=== PATIENT | male | born 1960 | race African-American/Black ===

== ENCOUNTER 2019-03-07 11:04 | Inpatient (IN) | payer BC, OTHER ==
[~2019-03-07] VITALS: Ht 190.5 cm; Wt 106.5 kg
[2019-03-07 11:57] VITALS: BP 126/91
[2019-03-07] MEDS ORDERED: REMERON 30 MG T30 MG PO (13:36)
[2019-03-07] MEDS ORDERED: TAMSULOSIN HCL0.4 MG PO (13:36)
[2019-03-07] MEDS ORDERED: GABAPENTIN 100100 MG PO (13:37)
[2019-03-07] MEDS ORDERED: FINASTERIDE5 MG PO (13:37)
[2019-03-07] MEDS ORDERED: MYRBETRIQ25 MG PO (13:38)
[2019-03-07] MEDS ORDERED: ELIQUIS5 MG PO (13:39)
[2019-03-07] MEDS ORDERED: TOPROL XL25 MG (13:39)
[2019-03-07 17:02] VITALS: BP 137/99
--- NOTE | 2019-03-07 17:08 | EKG ---
[address] [address] ELECTROCARDIOGRAM REPORT Name: CARINA HAYWARDALYSSIA Almanzar Room #: 216-P ADM IN M.R.#: [id number] Admission: 03/07/19 Attend Phys: Jeison Sevilla Discharge: Date of : 56 Report #: [id number] THIS REPORT FOR: //name// [facility] Test Date: 2019-03-07 Test Time: 13:22:31 Pat Name: FRANCESCO HAYWARD Department: Room: 216 P Gender: M Ict Project Manager: Nella SOTO : 1960 Requested By: Blanche Duff Order Number: [id number] MD: Liam Coffman Measurements Intervals [place] Rate: 112 P: [place]: QRS: -22 QRSD: 76 T: 117 QT: 348 QTc: 475 Interpretive Statements Atrial fibrillation Ventricular premature complex Borderline left axis deviation Anterior infarct, old No previous ECG available for comparison Electronically Signed On 03-07-2019 17:07:55 MARKETING RESEARCH COORDINATOR by Liam Coffman [email or web address] <ELECTRONICALLY SIGNED> By: Liam Coffman MD, [facility] 03/07/19 1707 1321 21 Liam Coffman MD, FACC /EPI
[2019-03-07 20:23] VITALS: BP 108/85
[2019-03-08] VITALS (13 sets, daily range): BP systolic 126–154; BP diastolic 71–112
[2019-03-08 09:08] LABS: CALCIUM 9.5 mg/dL (8.5-10.1); CREATININE 1.3 mg/dL (0.7-1.3); HEMATOCRIT 49.9 % (42.0-52.0); HEMOGLOBIN 16.1 gm/dL (14.0-18.0); MCH 23.1 pg (26.0-34.0); MCHC 32.3 g/dL (28.0-37.0); MCV 71.6 fL (80.0-100.0); POTASSIUM 3.7 mmol/L (3.5-5.1); RBC 6.96 mil/uL (4.50-6.00)
--- NOTE | 2019-03-08 18:49 | NUR ---
PT. ARRIVED AT FLOOR AROUND 1600; PT. ASKING TO TAKE MASK OFF; ALERT TO PERSON; STRONG MALODORUS ODOR COMMING FROM BACK WOUNDS; ON BYPAP; ADMISSION PERFORMED; AROUND 1700 DR. GILL AT THE BED SIDE; PER ORDER TRANSFER PT. TO ICU; ORDERS PUT ON COMPUTER; [facility] NURSING DIRECTOR NOTIFIED; REPORT GIVE IT TO K; AROUND 1745 PT. TRANSFER TO [facility]; ADMISSION PERFORMED;
--- NOTE | 2019-03-08 19:09 | NUR ---
RECEIVED PT'S CARE AROUND 0716; PT. ON BED; AOX4; DURING ASSESSMENT NO C/O PAIN; HR ON THE 110s; C/O SOB EPISODES FROM TIME TO TIME; 02 ALLISON ABOVE 90%; AM MEDICATIONS GIVEN WITH SIP OF WATER; EDUCATED ABOUT TO REMAIN NPO FOR PROCEDURE; ST. DAILY; TOOK FOR PROCEDURE AROUND 1320; CAME BACK AROUND 1430; A0X4; BED REST FOR 3H; R. GROIN AREA D/C/I; NO HEMATOMA; ASSESSMENT CHARGED; FOLLOWING POC; PASSED ON REPORT;
[2019-03-09] VITALS (7 sets, daily range): BP systolic 123–153; BP diastolic 98–108
--- NOTE | 2019-03-09 04:03 | NUR ---
SHIFT NOTE: PATIENT ALERT AND ORIENTED AND ABLE TO COMMUNICATE NEEDS. DENIES PAIN OR DISCOMFORT. UP AND ANDREW TO THE BATHROOM INDEPENDENTLY. VITAL SIGN AND OTHER SHIFT ASSESSMENT CHARTED. RIGHT GROIN SITE ASSESSMENT. DRESSING CLEAN,DRY AND INTACT AND SITE WITH NO PAIN OR HEMATOMA. PALPABLE PEDAL PULSES AND CAP REFILL <3SEC. DR RIVERA PAGED FOR ANTACID AND ORDER PROCESSED. DENIES OTHER CONCERN OR COMPLAINT. HOURLY ROUNDING. CALL LIGHT AND PERSONAL ITEMS WITHIN REACH. WILL CONTINUE WITH CURRENT POC AND TO MONITOR.
[2019-03-09 06:09] LABS: ALBUMIN 3.5 g/dL (3.4-5.0); CALCIUM 9.2 mg/dL (8.5-10.1); CREATININE 1.6 mg/dL (0.7-1.3); POTASSIUM 3.7 mmol/L (3.5-5.1); TOTAL BILIRUBIN 1.1 mg/dL (<0.1-1.0); TOTAL PROTEIN 6.3 g/dL (6.4-8.2)
--- NOTE | 2019-03-09 11:04 | NUR ---
PT BROUGHT FROM INPT ROOM TO CV HOLDING FOR CARDIOVERSION. CONSENT SIGNED, NPO SINCE MIDNIGHT, PATENT IV.
--- NOTE | 2019-03-09 12:31 | NUR ---
ROMAZICON 0.4 GIVEN FOR REVERSAL OF SEDATION PER VO DR RIVERA. PT OPENED EYES, SLEEPY, A&O. REMAINS ON 2L NC STILL PT MORE AWAKE. DENIES PAIN OR DISCOMFORT. AT BEDSIDE.
--- NOTE | 2019-03-09 16:42 | NUR ---
PT CARE ASSUMED APPROX 0700. ASSESSMENTS CHARTED. PT DENIES PAIN AND SOA. VSS. CARDIOVERSION SUCCESSFULLY COMPLETED. PT UP WITH STEADY GAIT. AT BEDSIDE. SECOND HAND INFO FROM TOWEL ROLLING MACHINE OPERATOR IS THAT PT MAY DISCHARGE HOME THIS EVENING BUT NO ORDERS IN AT THIS TIME. VSS. PT DENIES QUESTIONS AND CONCERNS REGARDING POC. NO DISTRESS NOTED.
[2019-03-09] MEDS ORDERED: AMIODARONE HCL400 MG PO (17:59)
--- NOTE | 2019-03-09 18:04 | NUR ---
PT TO BE DISCHARGED AT THIS TIME. DISCHARGE PAPERWORK, NEW MEDS AND APPT F/U REVIEWED BY DR HERMAN AND THIS NURSE. PT AND SPOUSE BOTH DENY QUESTIONS AND CONCERNS REGARDING [facility]. IV OUT, TELE BOX OFF. NURSING STAFF TO ESCORT PT OUT TIMELY.
--- NOTE | 2019-03-10 12:07 | EKG ---
[address] [address] ELECTROCARDIOGRAM REPORT Name: YESYFRANCESCO W Room #: 216- DIS IN M.R.#: [id number] Admission: 03/07/19 Attend Phys: Jeison Sevilla Discharge: 03/09/19 Date of : 56 Report #: [id number] THIS REPORT FOR: //name// [facility] Test Date: 2019-03-08 Test Time: 07:15:17 Pat Name: FRANCESCO HAYWARD Department: Room: 216 Gender: M Room Clerk: Lisa BLACK : 1960 Requested By: Blanche Duff Order Number: [id number] MD: Marek Duncan Measurements Intervals [place] Rate: 110 P: [place]: QRS: -25 QRSD: 81 T: 69 QT: 384 QTc: 520 Interpretive Statements Atrial fibrillation Anterior infarct, old Nonspecific ST segment abnormalities Compared to ECG 03/07/2019 13:22:31 Prolonged QT interval now present Ventricular premature complex(es) no longer present Myocardial infarct finding still present Electronically Signed On 03-10-2019 12:06:52 GARNETT FIXER by Marek uDncan [email or web address] <ELECTRONICALLY SIGNED> By: Marek Duncan MD 03/10/19 1206 4 4 Marek Duncan MD /EPI
== END 2019-03-09 19:00 | disposition home or self-care (01) | DRG 309 ==
LOC: 2N 11:04
PROVIDERS: Nurse Practitioner Gerontology; ADMIT Internal Medicine
DX: I48.91 Unspecified atrial fibrillation (principal); I50.20 Unspecified systolic (congestive) heart failure; N40.0 Benign prostatic hyperplasia without lower urinary tract symptoms; Z79.899 Other long term (current) drug therapy; I11.0 Hypertensive heart disease with heart failure
CPT/HCPCS: 10081